=== PATIENT | female | born 1975 | race Two or more races ===

== ENCOUNTER 2016-07-21 18:36 | Emergency (ER) | payer MEDICAID, OTHER ==
[2016-07-21] MEDS ORDERED: HYDROCODONE/APAP 5/325 TAB PO ONE (18:55)
[2016-07-21] MEDS ORDERED: IBUPROFEN 800 MG TAB PO ONE (18:55)
[2016-07-21 19:06] VITALS: BP 185/85; PULSE 102; RESP 18; TEMP 98.8; O2SAT 93
--- NOTE | 2016-07-21 19:36 | UCPHY ---
H & P Time Seen by Provider: 07/21/16 18:49 Patient Type: New HPI/ROS: This patient complains of some chronic ankle pain and swelling but significant worsening since pain treadmill 5 days ago. The pain is primarily to the right medial ankle an she notes increased swelling over the past 5 days with the worsening symptoms. At times the pain is 7/10. She had a Vicodin left over from a prior surgery that she took with partial relief along with ibuprofen notes no other exacerbating factors. She is unable to bear full weight due to the pain. ROS: No posterior calf pain. No numbness or tingling. No other musculoskeletal injuries. 5 point ROS is otherwise negative. 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 She saw an orthopedic surgeon a few years ago for her chronic ankle pain and he noted significant degenerative changes to the ankle at that time. He recommended against surgery at that time. Smoking Status: Never smoked Physical Exam: Physical Exam Vital signs are normal. General: Pleasant morbidly obese female No acute distress HEENT: Atraumatic. Eyes: Pupils equal and react to light. Extraocular motions are intact. Lungs: No respiratory distress. Cardiac: Brisk capillary refill is intact throughout. Pulses are 2+ and symmetric in the affected extremity. Skin: No rash or pallor. Extremities: Atraumatic normal except for right ankle Right ankle: Patient has circumferential swelling that she states is baseline but increase in medial swelling to the medial malleolus. No significant laxity on anterior drawer. No ecchymosis. No Achilles tenderness. No foot tenderness or swelling. Neuro: Alert and oriented x3 with no sensorimotor deficits. Initial differential diagnosis: Fracture, worsening osteoarthritis, sprain Constitutional: Initial Vital Signs Temperature (C) 37.1 C 07/21/16 18:58 Heart Rate 102 H 07/21/16 18:58 Respiratory Rate 18 07/21/16 18:58 Blood Pressure 185/85 H 07/21/16 18:58 O2 Sat (%) 93 07/21/16 18:58 O2 Delivery Mode Room Air Allergies/Adverse Reactions: No Known Allergies Allergy (Verified 07/21/16 18:46) Home Medications: Medication Instructions Recorded Hydrocodone/APAP 5/325 [[place] 1 - 2 tab PO Q4PRN PRN #20 tab 07/21/16 5/325 (*)] MDM/Departure - MDM Diagnostics: Ankle x-ray: Severe DJD with osteophytes by my interpretation possible avulsion fracture to the osteophyte adjacent to the medial malleolus Dr. Rader-radiologist also reads this as severe did degenerative changes with possible avulsion fracture Medications Given: Discontinued Medications Hydrocodone Bitart/Acetaminophen ([place] 5/325) 1 tab PO EDNOW ONE Stop: 07/21/16 18:56 Last Admin: 07/21/16 19:45 Dose: 1 tab Ibuprofen (Motrin) 800 mg PO EDNOW ONE Stop: 07/21/16 18:56 Last Admin: 07/21/16 19:45 Dose: 800 mg ED Course/Re-evaluation: Patient is placed in a walker boot. I counseled her regarding the significant degenerative changes and possibility of a small avulsion fracture of 1 of the medial osteophytes her ankle. She is treated with ibuprofen and Vicodin with Plan follow up with Dr. Martinez-orthopedics. - Depart Disposition: Home, Routine, Self-Care Clinical Impression: Degenerative joint disease of ankle Qualifiers: Osteoarthritis type: primary Laterality: right Qualified Code(s): M19.071 - Primary osteoarthritis, right ankle and foot Condition: Good Instructions: Osteoarthritis (ED) Additional Instructions: Diagnosis: Severe degenerative joint disease of ankle Plan: Ice elevation Walker boot until symptoms improve Crutches if needed Ibuprofen and Tylenol or Vicodin for pain control. If her taking Vicodin, use a stool softener to prevent constipation. Follow up with Dr. Martinez or orthopedic surgeon of your choice for further evaluation. Prescriptions: Hydrocodone/APAP 5/325 [[place] 5/325 (*)] 1 - 2 tab PO Q4PRN PRN #20 tab PRN Reason: Pain Referrals: NONE *PRIMARY CARE P,. [Primary Care Provider] - As per Instructions Ana Martinez MD [Medical Doctor] - As per Instructions - PQRS PQRS Measurement: NA
[2016-07-21] MEDS ORDERED: IBUPROFEN 600 MG TAB PO ONE (20:02)
[2016-07-21] MEDS ORDERED: IBUPROFEN 200 MG TAB PO ONE (20:02)
== END 2016-07-21 20:00 | disposition home or self-care (01) ==
LOC: CED 18:36
DX: M19.071 Primary osteoarthritis, right ankle and foot (principal); E66.9 Obesity, unspecified
CPT/HCPCS: 73610-PO; 99203-PO; G0463-PO; L4386